=== PATIENT | male | born 2000 | race Caucasian/White ===

== ENCOUNTER 2023-01-26 09:43 | Outpatient (AMB) | payer BC, SELFPAY ==
[2023-01-26 11:09] VITALS: BP 120/60; PULSE 72; TEMP 36.4; O2SAT 98; BMI 25.3
--- NOTE | 2023-01-26 11:09 | MHC.OFFWIV ---
Intake Vital Signs 01/26/23 11:09 Height 6 ft 1 in Weight 192 lb BMI 25.3 BP 120/60 Blood Pressure Location Rt brachial Position Sitting Pulse 72 Pulse Source Pulse Oximeter Temp 97.6 F Temp Source Temporal Artery Scan Pulse Oximetry (%) 98 Oxygen Delivery Method Room Air Intake Visit Reasons: EP fever 102 2 days throat chills [id number] Intake Note: pt is here today for fever 102, throat chills started 2 days ago Patient Tobacco Use Status: Never used Tobacco Allergies No Known Allergies [No Known Allergies*] Allergy (Verified 01/26/23 11:10) Do you need a note to return to daycare/school/sports/work: Yes HPI HPI Comments History of Present Illness Details This is a 22-year-old male who presents to the office today for sick visit. Patient complaining of viral uri symptoms such as nasal/sinus congestion, rhinorrhea, sore throat, fevers/chills, myalgias, diarrhea. PFSH Family History Mother No problems noted. Father No problems noted. Brother Mental health disorder Social History Housing: House Alcohol intake: current Alcohol intake frequency: a few times a month Patient Tobacco Use Status: Never used Tobacco Tobacco use type: Cigarette e-Cigarette/Vaping Use: Never Used Second Hand Smoke Exposure: No service: No Current occupational status: employed Current occupation: Electrical work Cognitive needs: No Hearing needs: No Vision needs: No Review of Systems Const All systems reviewed & are unremarkable except as noted in HPI and below Reports no additional complaints Eyes Reports no additional complaints ENT Reports no additional complaints Card Reports no additional complaints Resp Reports no additional complaints GI Reports no additional complaints Reports no additional complaints Musc Reports no additional complaints Skin/Breast Reports system reviewed and no additional complaints, except as documented Neuro Reports no additional complaints Psych Reports no additional complaints Endo Reports no additional complaints Servando/Lymph Reports no additional complaints Aller/Immun Reports no additional complaints Physical Exam Vital Signs: Last Vital Signs Temp 97.6 F 01/26/23 11:09 Pulse 72 01/26/23 11:09 BP 120/60 01/26/23 11:09 Pulse Ox 98 01/26/23 11:09 Oxygen Delivery Method Room Air 01/26/23 11:09 BMI result Body Mass Index 25.3 Const Other: Vital signs reviewed. Constitutional: Non-toxic appearing. No acute distress. Well-developed and well-nourished. HEENT: Normocephalic and atraumatic. Tympanic membranes without erythema, edema, or bulging bilaterally. Mild effusions behind TM bilaterally but no erythema or bulging of TM. External auditory canals without erythema or edema bilaterally. Moist mucous membranes. No pharyngeal erythema or exudates. Skin: Warm and dry. No rashes or lesions noted. Neck: Full and painless range of motion. No cervical lymphadenopathy. Cardio: Regular rate and rhythm. No murmurs, gallops, or rubs. No lower extremity edema. No JVD. Pulmonary: No respiratory distress. No accessory muscle usage. Clear to auscultation bilaterally without wheezing, crackles, or rhonchi. Gastrointestinal: Soft, nontender, and nondistended in all 4 quadrants. Musculoskeletal: Normal range of motion in joints throughout the body. No deformity or other signs of injury. Neuro: Alert and oriented x4. Cranial nerves 2-12 grossly intact. No focal deficits appreciated. Psych: Normal mood and affect. Assessment & Plan Assessment & Plan (1) Viral URI: Code(s): J06.9 - Acute upper respiratory infection, unspecified Plan: THis is a 22-year-old male presenting to the office complaining of viral URI symptoms x 3 days. His vital signs are stable, his pyshical exam is benign, and he is overall [id number]. Patient presenting with signs and symptoms most consistent with acute respiratory tract infection, possibly influenza. COVID/FLU/RSV sent. Recommended symptomatic management including rest, increased fluids, advil/tylenol for pain/fever, and over the counter throat lozenges/decongestants. Patient advised to follow up here or go to the emergency room for worsening/persistent symptoms. Patient verbalized understanding and is agreeable with the plan. Orders: Orders SARS-CoV2/FLU/RSV Today R09.89 - Other specified symptoms and signs involving the circulatory and respiratory systems Coding Level of Care Code Est Pt Level 3 (74942) Diagnoses Viral URI J06.9
== END 2023-01-26 11:55 | disposition home or self-care (01) ==
PROVIDERS: PCP Physician Assistant; Visit Provider Physician Assistant Medical
DX: J06.9 Acute upper respiratory infection, unspecified (principal); J02.9 Acute pharyngitis, unspecified
CPT/HCPCS: 87880; 99213

== ENCOUNTER 2023-01-26 13:57 | Outpatient (REF) | payer BC, SELFPAY ==
[2023-01-26 15:34] LABS: Influenza A PCR NEGATIVE (Negative); Influenza B PCR NEGATIVE (Negative); Resp Syncy Virus RNA Qual PCR NEGATIVE (Negative); SARS COV2 PCR INHOUSE NEGATIVE (Negative)
== END 2023-01-26 13:58 | disposition home or self-care (01) ==
LOC: HO.LNP 13:57
PROVIDERS: Visit Provider Physician Assistant Medical
DX: Z11.52 Encounter for screening for COVID-19 (principal); Z20.822 Contact with and (suspected) exposure to COVID-19; R09.89 Other specified symptoms and signs involving the circulatory and respiratory systems
CPT/HCPCS: 0241U

== ENCOUNTER 2023-03-15 15:54 | Outpatient (AMB) | payer BC, SELFPAY ==
[2023-03-15 15:58] VITALS: BP 136/78; PULSE 70; O2SAT 98; BMI 25.4
--- NOTE | 2023-03-15 15:58 | A.OFFPC_ITS ---
Vital Signs 3 03/15/23 15:58 Height 6 ft 1 in Weight 192 lb 4 oz BMI 25.4 BP 136/78 Blood Pressure Location Rt brachial Position Sitting Pulse 70 Pulse Source Pulse Oximeter Pulse Oximetry (%) 98 Oxygen Delivery Method Room Air Intake Visit Reasons: Annual Exam Intake Note: Patient is here today for a physical. Diagnostics Sales Developer Required: No Accompanied by: Self / Same As Patient Allergies No Known Allergies [No Known Allergies*] Allergy (Verified 03/15/23 16:06) Medication List - Last Reconciled 03/15/23 by Ronald Ornelas PA-C fluticasone propionate 50 mcg/actuation (Flonase Allergy Relief) 1 spray intranasal DAILY Tobacco use date assessed: 03/15/23 Dental Screening Dental Screen Date: 03/15/23 Did you have a dental visit in the last 12 months?: Yes Did you have a dental problem in the last 6 months where you did not have access to dental care?: No Was dental information given to patient?: Patient has dentist HPI Annual Exam 2 HPI0 Details Patient is a 22-year-old male here today for routine annual physical. Unfortunately has not gotten any fasting labs. Continues to be bothered by nasal congestion. Does have a nasal deviated septum from multiple broken noses throat his lifetime. He does use a nasal spray though was not too effective. Vaccine: UTD with COVID vac, declines flu vac . PFSH Family History Mother No problems noted. Father No problems noted. Brother Mental health disorder Social History Housing: House Alcohol intake: current Alcohol intake frequency: a few times a month Patient Tobacco Use Status: Never used Tobacco Tobacco use type: Cigarette e-Cigarette/Vaping Use: Never Used Second Hand Smoke Exposure: No service: No Current occupational status: employed Current occupation: Electrical work Cognitive needs: No Hearing needs: No Vision needs: No Questionnaire PHQ-9 Over the last 2 weeks, how often have you been bothered by any of the following problems? 1. Little interest or pleasure in doing things: not at all 2. Feeling down, depressed, or hopeless: not at all 3. Trouble falling or staying asleep, or sleeping too much: not at all 4. Feeling tired or having little energy: not at all 5. Poor appetite or overeating: not at all 6. Feeling bad about yourself - or that you are a failure or have let yourself or your family down: not at all 7. Trouble concentrating on things, such as reading the newspaper or watching television: not at all 8. Moving or speaking so slowly that other people could have noticed. Or the opposite - being so fidgety or restless that you have been moving around a lot more than usual: not at all 9. Thoughts that you would be better off or of hurting yourself in some way: not at all Total score: 0 Depression Screening Interpretation: Negative Depression Screening Done: Yes 60922 - PHQ-9 Billing: Yes Source: Developed by Drs. Agustin Hendrickson, Marilee Hernandez, Daniel Croft and colleagues, with an educational rashi from [employer]. Thrive Questionnaire Date Thrive assessed: 03/15/23 I am a: Patient What is your living situation today?: I have a steady place to live Within the past 12 months, did the food you bought not last and you didn't have the money to get more?: Never true Within the past 12 months, did you worry whether your food would run out before you got money to buy more?: Never true Do you have trouble paying for medicines?: No Do you have trouble getting transportation to medical appointments?: No Do you have trouble paying your heating and electricity bill?: No Do you have trouble taking care of your child, family member or friend?: No Do you have trouble with day-to-day activities such as bathing, preparing meals, shopping, managing finances, etc.?: No Are you currently unemployed and looking for a job?: No Are you interested in more education?: No Please select the resources that you would like help with: None Currently or been in a relationship where the following occur: no concerns reported THRIVE Score: 0 AUDIT C Alcohol Use Questionnaire (AUDIT-C) 1. How often do you have a drink containing alcohol?: 2-4 times a month 2. How many drinks containing alcohol do you have on a typical day when you are drinking?: 5 or 6 3. How often do you have six or more drinks on one occasion?: Monthly Total Score: 6 AVANI-7 AMB Questionnaire AVANI-7 Date AVANI - 7 assessed: 03/14/22 Source: Developed by Drs. Agustin Hendrickson, Marilee Hernandez, Daniel Croft and colleagues, with an educational rashi from [employer]. Review of Systems Const Denies body aches, Denies chills, Denies excessive sweating, Denies fatigue, Denies fever(s) and Denies headache(s) Eyes Denies blurry vision ENT Denies dysphagia, Denies vertigo, Denies dizziness, Denies headache(s), Denies hearing loss and Denies tinnitus Card Denies chest pain, Denies chest pain with activity, Denies syncope, Denies irregular heart rhythm and Denies dyspnea Resp Denies chest congestion, Denies cough, Denies hemoptysis, Denies dyspnea and Denies wheezing GI Denies abdominal pain, Denies melena, Denies hematochezia, Denies coffee ground emesis, Denies dysphagia, Denies diarrhea, Denies nausea and Denies vomiting Denies difficulty urinating, Denies dysuria, Denies urinary frequency, Denies urinary hesitancy and Denies urinary urgency Musc Denies arthralgias, Denies limited range of motion, Denies muscle cramps and Denies muscle weakness Skin/Breast Denies rash and Denies skin ulcer Neuro Denies Abnormal speech present, Denies confusion, Denies vertigo, Denies dizziness, Denies syncope, Denies headache(s), Denies memory loss and Denies seizure-like activity Psych Denies anxiety, Denies confusion, Denies depression, Denies memory loss, Denies panic attacks and Denies paranoia Endo Denies excessive sweating, Denies fatigue, Denies flushing, Denies polydipsia and Denies polyuria Aller/Immun Denies wheezing Physical exam (Primary Care) Vital Signs: Last Vital Signs Pulse 70 03/15/23 15:58 BP 136/78 03/15/23 15:58 Pulse Ox 98 03/15/23 15:58 Oxygen Delivery Method Room Air 03/15/23 15:58 BMI result Body Mass Index 25.4 Tobacco/Smoking Status: Tobacco use Status Tobacco use date assessed 03/15/23 03/15/23 16:04 Patient Tobacco Use Status Never used Tobacco 03/15/23 16:03 Tobacco use type Cigarette 03/15/23 16:03 e-Cigarette/Vaping Use Never Used 03/15/23 16:03 PHQ-9: PHQ-9 Score PHQ-9: Total score 0 03/15/23 16:06 Depression Screening Interpretation: Negative Thrive Assessment: Date of Thrive Assessment Date Thrive assessed 03/15/23 03/15/23 16:03 Currently or been in a relationship where the following occur: no concerns reported Const General: cooperative, comfortable, no acute distress, alert and awake; No confusion Orientation/consciousness: oriented to person, oriented to place, patient oriented x3 and No confusion HENMT Head: Yes normocephalic Ears: external ears normal and TM's normal bilaterally Nose image: 2 1. OBVIOUS RIGHT NASAL SEPTUM DEVIATION Face and sinus: No sinus tenderness Mouth: Normal oral and palatal mucosa present and tongue normal Teeth and gingiva: dentition normal and gingiva normal Throat: Yes posterior oropharynx normal, Yes tonsils normal and Yes uvula midline Eyes Conjunctivae: conjunctivae normal Sclerae: sclerae normal Pupils: Equal, round and reactive pupils present EOM: EOMs intact bilaterally Direct Ophthalmoscopy: No no photophobia Neck Neck: Yes no lymphadenopathy, No tender and Yes no JVD Thyroid: Thyroid normal Carotids: no bruits Chest Chest palpation & inspection: no tenderness Resp Effort & Inspection: normal respiratory effort, no audible wheezes, not labored and no stridor Auscultation: no crackles, no rales, no rhonchi and no wheezes Cardio Jugular venous distension: no JVD Rate: regular rate, not bradycardic and not tachycardic Rhythm: regular rhythm Bruits: no carotid bruits Peripheral pulses: Peripheral pulses 2+ throughout GI Inspection: Yes normal to inspection, No abdominal wall ecchymosis and No visible herniation Palpation (GI): Soft to palpation, nontender, no guarding, not rigid and No hepatosplenomegaly present Auscultation: normoactive bowel sounds General: Yes no CVA tenderness Back/Spine/Pelvis Back: no CVA tenderness and No back tenderness Cervical Spine: cervical ROM normal Thoracic/Lumbar Spine: thoracic and lumbar spine normal to inspection, straight leg raise negative bilaterally, No thoraco-lumbar ROM limited and No lumbar spinal tenderness Skin Lesions: no lesions Rashes: no rashes Wounds: no wounds Neuro General: oriented to person, oriented to place, patient oriented x3, CN's II-XI intact bilaterally and No confusion Cranial nerves: Yes Equal, round and reactive pupils present and Yes Normal accommodation reflex present Cognition (Neuro): normal cognition Speech: No Abnormal speech present Gait exam (Neuro): Normal gait present Motor exam (neuro): 5/5 motor strength present throughout Extrem Right upper extremity: full ROM; no cyanosis Left upper extremity: full ROM; no cyanosis Right lower extremity: no edema Left lower extremity: no edema Psych Appearance: grossly normal Mental Status: mental status grossly normal Affect: normal affect Attitude: cooperative Thought process: Normal thought process present Assessment and Plan Assessment & Plan (1) Annual physical exam: Code(s): Z00.00 - Encounter for general adult medical examination without abnormal findings (2) Deviated nasal septum: Code(s): J34.2 - Deviated nasal septum Plan: Has had multiple broken noses during his lifetime. Has difficulty breathing out of his right nostril. Does use nasal spray though has not effective. Does have somewhat difficult time breathing through his nose while sleeping and always wakes up with a dry mouth. He is interested in seeing ENT surgeon evaluation for nasal septum repair. Orders: Orders 2 Comprehensive [place]. Panel Fast 03/15/23 Z13.1 - Encounter for screening for diabetes mellitus Referrals 2 Ear/Nose/Throat Referral J34.2 - Deviated nasal septum Coding Level of Care Code Est Pt Prev Care 18-39y([id number]) Diagnoses Annual physical exam Z00.00 Deviated nasal septum J34.2
== END 2023-03-15 16:22 | disposition home or self-care (01) ==
PROVIDERS: Visit Provider Physician Assistant
DX: Z00.00 Encounter for general adult medical examination without abnormal findings (principal); J34.2 Deviated nasal septum
CPT/HCPCS: 99395